=== PATIENT | male | born 1945 | race Caucasian/White ===

== ENCOUNTER 2018-04-04 17:46 | Emergency (ER) | payer MEDICARE, BC ==
[2018-04-04] MEDS ORDERED: HYDROcodone/Acetaminophen 5/325 mg Tablet ONE (18:17)
[2018-04-04] MEDS ORDERED: Ketorolac Tromethamine 30 MG/ML VIAL ONE (18:17)
--- NOTE | 2018-04-04 18:22 | RAD ---
LEFT SHOULDER THREE VIEWS: 04/04/18 HISTORY: Pain. COMPARISON: None. FINDINGS: There is a comminuted fracture left proximal humerus extending to the lesser and greater tuberosity o f the humeral neck. No fracture displaced greater than 1 cm and there is less than 45 degree angulati on. IMPRESSION: 1. Comminuted fracture left humeral neck. 2. Likely left sided rib fractures. 3. Likely left extrapleural hematoma. POS: [facility]
== END 2018-04-04 18:35 | disposition home or self-care (01) ==
LOC: SCSER 17:46
DX: S42.292A Other displaced fracture of upper end of left humerus, initial encounter for closed fracture (principal); E78.5 Hyperlipidemia, unspecified; Z87.891 Personal history of nicotine dependence; X58.XXXA Exposure to other specified factors, initial encounter
CPT/HCPCS: 93005; 96372; J1885

== ENCOUNTER 2019-05-31 06:04 | Outpatient (CLI) | payer MEDICARE, BC ==
[2019-05-31 13:17] LABS: Hemoglobin 13.2 g/dL (14.0-18.0); Mean Corpuscular HGB CONC 32.7 g/dL (32.0-36.0); Mean Corpuscular Hemoglobin 31.1 pg (27.0-31.0); Mean Corpuscular Volume 95.1 fL (78.0-98.0); Platelet Count 218 thou/uL (130-400); RBC Distribution Width 11.9 % (11.5-14.5); Red Blood Cell (RBC) Count 4.23 mill/uL (4.70-6.10); White Blood Cell (WBC) Count 6.5 thou/uL (4.8-10.8)
[2019-05-31 13:20] LABS: Bilirubin Negative (Negative); Blood, Urine 3+ (Negative); Clarity Turbid (Clear); Glucose, Urine (Dipstick) Normal (Negative); Leukocyte 25 Leu/uL (Negative); Nitrite Negative (Negative); Protein, Urine (Dipstick) 20 mg/dL (Neg-Trace); RBC/HPF Greater than 50 HPF (0-3); Squamous Epithelial None Seen HPF (0-3); Urobilinogen Normal mg/dL (Less than 2)
[2019-05-31 13:23] LABS: Bacteria/HPF 1+ HPF (None Seen)
[2019-05-31 13:25] LABS: INR-International Normal Ratio 1.7; Prothrombin Time 19.8 SEC (12.0-14.7)
[2019-05-31 13:51] LABS: Anion Gap 12 mmol/L (10-20); BUN (Urea Nitrogen) 28 mg/dL (8.4-25.7); Calc. Creatinine Clearance 0 mL/min (70-130); Calcium 9.7 mg/dL (7.8-10.44); Carbon Dioxide 27 mmol/L (23-31); Chloride 107 mmol/L (98-107); Estimated GFR-MDRD 56; Glucose 90 mg/dL (83-110); Potassium 4.7 mmol/L (3.5-5.1); Sodium 141 mmol/L (136-145)
--- NOTE | 2019-06-02 18:47 | EKG ---
Test Reason : Blood Pressure : / mmHG Vent. Rate : 050 BPM Atrial Rate : 050 BPM P-R Int : 208 ms QRS Dur : 126 ms QT Int : 480 ms P-R-T Axes : 012 066 098 degrees QTc Int : 437 ms Sinus bradycardia Non-specific intra-ventricular conduction block Cannot rule out Anteroseptal infarct (cited on or before 04-APR-2018) Abnormal ECG When compared with ECG of 04-APR-2018 18:16, Premature ventricular complexes are no longer Present Criteria for Inferior infarct are no longer Present Questionable change in initial forces of Anteroseptal leads Nonspecific T wave abnormality has replaced inverted T waves in Lateral leads Confirmed by DR. Marc WALKER ([id number]) on 06/02/2019 6:47:30 PM Referred By: JOSSE Confirmed By:DR. Marc WALKER
== END 2019-05-31 06:05 | disposition home or self-care (01) ==
LOC: LABBT 06:04
PROVIDERS: ATTEND Urology
DX: Z01.818 Encounter for other preprocedural examination (principal); N40.1 Benign prostatic hyperplasia with lower urinary tract symptoms
CPT/HCPCS: 80048; 81001; 85027; 85610; 85730; 87086; 93005; 93010

== ENCOUNTER 2019-06-08 09:30 | Inpatient (IN) | payer MEDICARE, BC ==
[2019-05-31 12:07] VITALS: BMI 25.8
[2019-06-08] MEDS ORDERED: Dexamethasone 20 MG/5 ML VIAL ONE (10:01)
[2019-06-08] MEDS ORDERED: Ondansetron PF 4 MG/2 ML Vial ONE (10:01)
[2019-06-08] MEDS ORDERED: Levofloxacin 500 mg/D5W 100 ml Premix Bag ONE (10:05)
[2019-06-08] MEDS ORDERED: Ketamine 50 MG/ML (10ML VIAL) ONE (11:27)
[2019-06-08] MEDS ORDERED: Midazolam HCl 2 mg/2 ml Vial ONE (11:27)
[2019-06-08] MEDS ORDERED: Ketorolac Tromethamine 30 MG/ML VIAL IVP SCH (12:00)
[2019-06-08] MEDS ORDERED: HYDROcodone/Acetaminophen 5/325 mg Tablet PO PRN (12:51)
[2019-06-08] MEDS ORDERED: Oxybutynin 5 MG TAB PO PRN (12:51)
[2019-06-08] MEDS ORDERED: diphenhydrAMINE 50 MG/ML VIAL IVP PRN (12:51)
[2019-06-08] MEDS ORDERED: PROVENTIL INHALER 6.7 G (200 INHALATIONS) INH PRN (12:51)
[2019-06-08] MEDS ORDERED: Morphine 4 MG/ML VIAL SLOW IVP PRN (12:51)
--- NOTE | 2019-06-08 14:09 | OP ---
DATE OF PROCEDURE: 06/08/2019 PREOPERATIVE DIAGNOSIS: Enlarged prostate with lower urinary tract symptoms. POSTOPERATIVE DIAGNOSIS: Enlarged prostate with lower urinary tract symptoms. PROCEDURE PERFORMED: Transurethral resection of prostate, bipolar. ANESTHESIA: General. COMPLICATIONS: None. SPECIMEN: Prostate chips. BLOOD LOSS: 30 mL. DESCRIPTION OF PROCEDURE: After informed consent, the patient was taken to the operating room, transferred to the table under his own power. Anesthesia was established. A time-out was performed, ensuring correct patient, site, and procedure. Preoperative antibiotics were administered. He was prepped and draped in the lithotomy position. The meatus was calibrated to 30-Croatian with Ernestina sounds. The rigid resectoscope was advanced through the urethra, noting a normal course and caliber in the urethra down to the prostatic urethra, noting coapting lateral lobes and a large median lobe. The bladder was entered, noting moderate trabeculation and no mucosal abnormalities. Both ureteral orifices were identified and were normal in appearance. I began by resecting the median lobe from the bladder neck back to the verumontanum. I then resected his left lobe from the 1 o'clock position down to the previously resected median lobe and then proceeded to repeat the same procedure on the patient's right side from 11 o'clock down. I then resected the anterior obstructing tissue. Meticulous hemostasis was achieved. All prostate chips were removed with the AnitaTDX evacuator. Upon completion, the irrigation was turned off, noting no active bleeding. Both ureteral orifices were uninvolved with resection. The scope was then removed and a 22-Cro[place]ian 3-way catheter was placed with 30 mL instilled in the balloon. Continuous irrigation was connected, which was running clear. The patient was then awoken from anesthesia, transferred back to his hospital bed, and taken to PACU in stable condition, where he will be admitted overnight for continuous irrigation. Job ID: [id number]
[2019-06-08] MEDS: Sodium Chloride 0.9% 1,000 ML IV SCH (16:00)
[2019-06-08] MEDS: Ketorolac Tromethamine 30 MG/ML VIAL IVP SCH (17:34)
[2019-06-08] MEDS: Docusate 100 MG CAP PO SCH (20:39)
[2019-06-08] MEDS: Rosuvastatin 20 MG TAB PO SCH (20:39)
[2019-06-08] MEDS ORDERED: Carvedilol 3.125 MG TAB PO SCH (21:00)
[2019-06-08] MEDS ORDERED: Furosemide 40 MG TAB PO SCH (21:00)
[2019-06-09] MEDS: Ketorolac Tromethamine 30 MG/ML VIAL IVP SCH ×5 (00:26→23:19)
[2019-06-09] MEDS: Sodium Chloride 0.9% 1,000 ML IV SCH (00:44)
--- NOTE | 2019-06-09 02:13 | PDOC.BPN ---
- Brief Progress Note Code Avery called for vasovagal episode while patient in restroom BP to 68/40, pulse 40 Moved patient to bed and bp recovered to 90s/50s, Pulse to mid 50s Patient states he never felt like he was about to pass out EKG shows sinus bradycardia no dropped beats Will transfer patient for cardiac monitoring Per discussion with Travel Clerk, tele will not be able to manage his CBI therefore will send patient to IMCU for management of CBI and monitoring.
[2019-06-09 04:20] LABS: #Lymphocytes 0.5 thou/uL (1.20-3.40); #Monocytes 0.6 thou/uL (0.11-0.59); #Neutrophils 13.5 thou/uL (1.40-6.50); %Eosinophils 0.1 % (0.0-10.0); %Lymphocytes 3.4 % (21.0-51.0); %Monocytes 4.2 % (0.0-10.0); %Neutrophils 92.3 % (42.0-75.0); Hemoglobin 10.4 g/dL (14.0-18.0); Mean Corpuscular HGB CONC 32.3 g/dL (32.0-36.0); Platelet Count 189 thou/uL (130-400); RBC Distribution Width 11.7 % (11.5-14.5); Red Blood Cell (RBC) Count 3.37 mill/uL (4.70-6.10); White Blood Cell (WBC) Count 14.6 thou/uL (4.8-10.8)
[2019-06-09] MEDS ORDERED: Sodium Chloride 0.9% 1,000 ML IV SCH (05:15)
[2019-06-09] MEDS ORDERED: Lactated Ringer's 1,000 ML IV SCH (06:00)
[2019-06-09] MEDS ORDERED: Spironolactone 25 MG TAB PO SCH (09:00)
[2019-06-09] MEDS: Carvedilol 3.125 MG TAB PO SCH ×2 (09:19→17:47)
[2019-06-09] MEDS: Aspirin 81 mg Enteric Coated Tablet PO SCH (09:23)
[2019-06-09] MEDS: Docusate 100 MG CAP PO SCH ×2 (09:23→20:37)
--- NOTE | 2019-06-09 09:31 | PRG ---
DATE OF SERVICE: 06/09/2019 SUBJECTIVE: The patient was transferred to step-down unit overnight due to hypotension. He was symptomatic briefly, reporting a moment of lightheadedness and a code green was called. During that code green, he required no treatment and reported that he felt fine. This morning, he reports no chest pains, lightheadedness, shortness of breath, or pain. OBJECTIVE: VITAL SIGNS: Afebrile, systolic blood pressure 85 to 90, heart rate low in the 70s. GENERAL: No acute distress. LUNGS: Unlabored breathing. ABDOMEN: Soft, nontender, and nondistended. : Maurer catheter in good position, draining light pink urine on a very slow drip CBI. ASSESSMENT AND PLAN: Postoperative day 1, bipolar transurethral resection of prostate. Holding most of his blood pressure medications and reducing his carvedilol. I do not think the patient requires a higher level of care for his continuous bladder irrigation as it can be run a very slow rate. It seems the nursing staff overnight was responding to the color of the urine in the drainage bag rather than the tubing and was running this wide open and became very frustrated by that. I will re-evaluate him at mid day, and if he is well enough to discharge home, we will do so. Otherwise, he will return to the floor and may stay one more night. Job ID: [id number]
--- NOTE | 2019-06-09 10:22 | PDOC.HOSPP ---
- Subjective Encounter Date: 06/09/19 Encounter Time: 10:20 Subjective: impatient with questioning-"its all in my records". I'm fine" - Objective Vital Signs & Weight: Vital Signs (12 hours) Temp Temp Pulse Pulse Pulse Pulse Pulse 06/09/19 08:00 98.1 F 06/09/19 03:30 06/09/19 03:25 98.5 F 06/09/19 01:45 98 F 50 L 48 L 48 L 49 L 06/08/19 23:15 97.5 F L 60 Pulse Pulse Resp Resp Resp Resp Resp 06/09/19 08:00 06/09/19 03:30 06/09/19 03:25 06/09/19 01:45 55 L 55 L 20 20 18 20 06/08/19 23:15 16 Resp Resp BP BP BP BP BP 06/09/19 08:00 06/09/19 03:30 06/09/19 03:25 06/09/19 01:45 20 20 52/36 L 63/36 L 64/39 L 82/49 L 96/53 L 06/08/19 23:15 BP BP Pulse Ox Pulse Ox Pulse Ox Pulse Ox Pulse Ox 06/09/19 08:00 98 06/09/19 03:30 98 06/09/19 03:25 06/09/19 01:45 102/76 96 96 95 100 06/08/19 23:15 88/56 L 98 Pulse Ox 06/09/19 08:00 06/09/19 03:30 06/09/19 03:25 06/09/19 01:45 100 06/08/19 23:15 Weight Weight 175 lb Most Recent Monitor Data Heart Rate from ECG 59 NIBP 93/50 NIBP BP-Mean 64 Respiration from ECG 21 SpO2 100 I&O: 06/08/19 06/09/19 06/10/19 06:59 06:59 06:59 Intake Total 2656 480 Output Total 3650 1600 Balance -994 1120 Result Diagrams: 06/09/19 04:11 Additional Labs: Accuchecks 06/09/19 01:56 POC Glucose 152 H Hospitalist ROS - Medication Medications: Active Medications Generic Name Dose Route Start Last Admin Trade Name Freq PRN Reason Stop Dose Admin Aspirin 81 mg 06/09/19 09:00 06/09/19 09:23 Ecotrin PO 81 mg DAILY CADEN Administration Carvedilol 3.125 mg 06/09/19 08:00 06/09/19 09:19 Coreg PO Not Given BID-WM CADEN Docusate Sodium 100 mg 06/08/19 21:00 06/09/19 09:23 Colace PO 100 mg BID CADEN Administration Ketorolac Tromethamine 15 mg 06/08/19 18:00 06/09/19 05:49 Toradol IVP 06/13/19 18:01 15 mg Q6HR CADEN Administration Oxybutynin Chloride 5 mg 06/08/19 12:51 06/09/19 00:26 Ditropan PO 5 mg Q8H PRN Administration Bladder Spasms Rosuvastatin Calcium 20 mg 06/08/19 21:00 06/08/19 20:39 Crestor PO 20 mg HS CADEN Administration - Exam General Appearance: awake alert Neck: no JVD Heart: RRR, III/IV Respiratory: CTAB Gastrointestinal: soft, normal bowel sounds Extremities: no edema Hosp A/P (1) Syncope and collapse Code(s): R55 - SYNCOPE AND COLLAPSE Status: Acute (2) CAD (coronary artery disease) Code(s): I25.10 - ATHSCL HEART DISEASE OF [place] CORONARY ARTERY W/O ANG PCTRS Status: Chronic Qualifiers: Coronary Disease-Associated Artery/Lesion type: unspecified vessel or lesion type Associated angina: without angina (3) Cardiomyopathy, ischemic Code(s): I25.5 - ISCHEMIC CARDIOMYOPATHY Status: Chronic (4) Mitral insufficiency Status: Chronic Qualifiers: Cardiac valve disease etiology: etiology unspecified Qualified Code(s): I34.0 - Nonrheumatic mitral (valve) insufficiency (5) Protein S deficiency Code(s): D68.59 - OTHER PRIMARY THROMBOPHILIA Status: Chronic (6) Chronic anticoagulation Code(s): Z79.01 - INTERMEDIATE (CURRENT) USE OF ANTICOAGULANTS Status: Chronic - Plan stable at present, Nl Bp is 95/55 range.
--- NOTE | 2019-06-09 12:16 | CON ---
DATE OF CONSULTATION: 06/09/2019 SERVICE: Pulmonary Medicine. REASON FOR CONSULTATION: ICU patient. HISTORY OF PRESENT ILLNESS: The patient is a 74-year-old white male with past medical history significant for symptomatic BPH. Postoperatively, he had hypotension. Apparently, he was briefly lightheaded. A Code Green was called and he was brought to the ICU. This morning, he is awake, alert, and cooperative. He has no lightheadedness, fevers, chills, cough, sputum production, nausea, or vomiting. His last bowel movement was yesterday morning. His is touch frustrated because she says that his baseline blood pressure is typically 90/40. The patient confirms this. There were no significant overnight events otherwise. He has known heart failure. He has good medications at this point. PAST MEDICAL HISTORY: 1. Hypertension. 2. Dyslipidemia. 3. Coronary artery disease with history of PCI. 4. Chronic systolic heart failure. 5. DVT. 6. Macular degeneration. 7. BPH. PAST SURGICAL HISTORY: 1. Coronary artery bypass graft. 2. Cataract surgery. 3. Cochlear implant. 4. Transurethral resection of the prostate. 5. History of PCI (percutaneous coronary intervention). 6. Lower extremity vein stripping. 7. Left thoracotomy. SOCIAL HISTORY: He drinks moderate amount of alcohol. He has a history of smoking. Denies any illicit drugs. He has no exposure to chemicals, dust, asbestos, or tuberculosis. FAMILY HISTORY: Noncontributory. ALLERGIES: NO KNOWN DRUG ALLERGIES. MEDICATIONS: List of his inpatient medications was reviewed. No specific updates were made at this time. REVIEW OF SYSTEMS: General; head, ears, eyes, nose, throat; cardiovascular; respiratory; GI; ; musculoskeletal; neurologic; and skin are negative except as mentioned in the HPI. PHYSICAL EXAMINATION: VITAL SIGNS: Afebrile, pulse 59, blood pressure 93/50, respirations 21, and saturation 100% on room air. GENERAL: The patient is awake and alert, in no apparent distress. LUNGS: Very good air entry with no prolonged expiratory phase. I do not hear any crackles or wheezing. HEART: Normal rate and regular. ABDOMEN: Soft, nontender, and nondistended. Bowel sounds are positive. MUSCULOSKELETAL: No cyanosis or clubbing. No pitting in the bilateral lower extremities. NEUROLOGIC: Grossly nonfocal. LABORATORY DATA: WBC 14.6, hemoglobin 10.4, and platelets 189,000. Glucose 152. Creatinine 1.25 preop. Urinalysis is unremarkable. ASSESSMENT: 1. BPH, status post transurethral resection of the prostate, postop day #1. 2. Chronic systolic heart failure. 3. Low blood pressure, at baseline. DISCUSSION AND PLAN: We will move the patient through the day. If he tolerates getting into a chair and moving with physical therapy, he can be transitioned to the floor. I will continue to follow for the time being. I agree that he is likely stable for discharge home if he meets criteria from a surgical perspective. If he remains in-house in the ICU, I will follow. 70 minutes have been devoted to this patient in various activities. I personally reviewed all imaging studies and laboratory data noted within this document. For fifty percent of this time, I was interacting with the patient at the bedside or coordinating care with the care team. For the remainder of the time I was immediately available to the patient in the hospital unit. Job ID: [id number] MTDD
--- NOTE | 2019-06-09 12:17 | CON ---
DATE OF CONSULTATION: REQUESTING PHYSICIAN: Urology, Wade Barrera MD REASON FOR CONSULTATION: Hypertension. HISTORY OF PRESENT ILLNESS: Mr. Thee Dean is a 74-year-old with history of hypertension; CAD, status post CABG in 2009; with no recurrent coronary syndrome since then, hyperlipidemia, cochlear implant, protein S deficiency, on anticoagulation with Xarelto, who presented for TURP procedure yesterday and he was placed on bladder irrigation. The patient developed transient vasovagal symptoms while in the bathroom early hours of this morning. His blood pressure was noted to have systolic in the 80s. The patient was transferred to the ICU. Hospitalist Service was consulted for management of blood pressure. He has earlier been given his Coreg post surgery. The patient denies any chest pain. Denies any dizziness. We proceeded by giving him 1 L of normal saline. The patient's blood pressure improved to 110 now. He denies any syncope at this time. PAST MEDICAL HISTORY: Significant for hypertension, hyperlipidemia, coronary artery disease, status post CABG. PAST SURGICAL HISTORY: Cochlear implant, CABG, and transurethral resection of prostate yesterday. ALLERGIES: NO KNOWN DRUG ALLERGIES. HOME MEDICATIONS: See MAR and include Coreg 3.125 b.i.d. FAMILY HISTORY: Noncontributory. REVIEW OF SYSTEMS: All systems review x14 were negative. PHYSICAL EXAMINATION: CURRENT VITAL SIGNS: Blood pressure of 110/73, pulse of 89, respiratory rate of 18, O2 saturation is 97% on room air. GENERAL: Elderly male, not in any distress. HEENT: Pupils are equal and reactive to light. Extraocular movements are intact. NECK: No JVD. No carotid bruits. RESPIRATORY: Good air entry bilaterally. No crepitations. CARDIOVASCULAR: S1 and S2. Rate and rhythm regular. GI: Abdomen is full, soft, nontender. Bowel sounds positive. EXTREMITIES: No pedal edema. No calf tenderness. GENITOURINARY: Maurer catheter irrigation, triple-lumen Maurer catheter with . LABORATORY DATA: Hemoglobin this morning 10.4, WBC of 14. Glucose 152. IMPRESSION: Transient vasovagal symptoms with hypotension, likely due to Coreg use, with recent postoperative status, symptoms improved with IV fluids. Continue gentle IV fluids for now. There is no history of congestive heart failure. The patient tolerate NS at 100 mL/hour. PLAN: 1. We will hold off Coreg for now since previous transient bradycardia and vasovagal symptoms. Hold Lasix diuretic for now also. 2. Status post TURP -Continue bladder irrigation. Follow Urology. Monitor H and H. If decrease in H and H, the patient might need PRBC. 3. DVT prophylaxis. We will defer to Urology Team. Total time spent on review of record, discussion with the patient, and evaluation greater than 55 minutes. Job ID: [id number]
[2019-06-09] MEDS: Rosuvastatin 20 MG TAB PO SCH (20:37)
[2019-06-10] MEDS: Ketorolac Tromethamine 30 MG/ML VIAL IVP SCH (05:35)
[2019-06-10] MEDS: Carvedilol 3.125 MG TAB PO SCH (07:45)
[2019-06-10] MEDS: Docusate 100 MG CAP PO SCH (08:46)
[2019-06-10] MEDS: Aspirin 81 mg Enteric Coated Tablet PO SCH (08:46)
[2019-06-10 11:31] VITALS: BP 97/58; TEMP 98.2
--- NOTE | 2019-06-11 14:30 | DIS ---
DATE OF ADMISSION: 06/09/2019 DATE OF DISCHARGE: 06/10/2019 DIAGNOSIS: Enlarged prostate with lower urinary tract symptoms. PROCEDURE PERFORMED: Bipolar transurethral resection of prostate. HOSPITAL COURSE: The patient underwent an uncomplicated bipolar transurethral resection of prostate. He was managed with continuous irrigation overnight. He became lightheaded briefly and a code green was called overnight. He was transferred to the cardiac unit. However, in speaking with him reported that overall he felt fine and was not having any chest pains. His vitals remained stable and urine remained light pink on a slow drip. I elected to observe him another night and the following morning, on postop day 2, he was having no new symptoms, vitals remained stable, the urine was light pink, off CBI. He was deemed stable for discharge home at that point. Postoperative medications; continue home medications, we will hold Xarelto until his postoperative check, Bactrim, ibuprofen, oxybutynin, and docusate prescribed postoperatively. PLAN: Follow up next week for void trial. Job ID: [id number]
--- NOTE | 2019-06-13 13:30 | EKG ---
Test Reason : STAT Blood Pressure : / mmHG Vent. Rate : 052 BPM Atrial Rate : 052 BPM P-R Int : 188 ms QRS Dur : 124 ms QT Int : 476 ms P-R-T Axes : 021 016 135 degrees QTc Int : 442 ms Sinus bradycardia Possible Inferior infarct , age undetermined Abnormal ECG When compared with ECG of 31-DEC-1996 12:58, QRS duration has increased Borderline criteria for Inferior infarct are now Present T wave inversion now evident in Lateral leads Confirmed by TUAN RAJPUT (2) on 06/13/2019 1:30:00 PM Referred By: AIYANA Confirmed By:TUAN RAJPUT
== END 2019-06-10 11:44 | disposition home or self-care (01) | DRG 713 ==
LOC: SDC 09:30 → SURG A 11:29 → CCU 06-09 02:34 → OBSVTOIN 06-09 14:33 → SJJU 06-09 17:12
PROVIDERS: ADMIT Urology; ATTEND Urology
PROC: 0VB08ZZ Excision of Prostate, Via Natural or Artificial Opening Endoscopic (ICD-10-PCS; principal; 2019-06-08)
DX: N40.1 Benign prostatic hyperplasia with lower urinary tract symptoms (principal); D68.59 Other primary thrombophilia; I50.22 Chronic systolic (congestive) heart failure; R55 Syncope and collapse; I25.10 Atherosclerotic heart disease of native coronary artery without angina pectoris; I25.5 Ischemic cardiomyopathy; I34.0 Nonrheumatic mitral (valve) insufficiency; E78.5 Hyperlipidemia, unspecified; I11.0 Hypertensive heart disease with heart failure; I95.2 Hypotension due to drugs; T44.7X5A Adverse effect of beta-adrenoreceptor antagonists, initial encounter; Z87.891 Personal history of nicotine dependence
CPT/HCPCS: 36415; 36416; 85025; 88305; 93005; 93010; J1100; J1885; J1956; J2250; J2405

== ENCOUNTER 2021-08-23 11:47 | Outpatient (CLI) | payer MEDICARE, BC ==
[2021-08-23 23:06] LABS: SARS-CoV-2 PCR by NAA Not Detected (NotDetected)
== END 2021-08-23 11:48 | disposition home or self-care (01) ==
LOC: LABBT 11:47
PROVIDERS: ATTEND Ophthalmology Retina Specialist
DX: Z01.812 Encounter for preprocedural laboratory examination (principal); H35.371 Puckering of macula, right eye; H54.7 Unspecified visual loss; Z20.822 Contact with and (suspected) exposure to COVID-19
CPT/HCPCS: U0003; U0005

== ENCOUNTER 2021-08-28 06:42 | Day surgery (SDC) | payer MEDICARE, BC ==
[2021-08-27 13:11] VITALS: BMI 25.1
[~2021-08-28 06:42] MED LIST: EPINEPHrine 0.3 MG in Ophthalmic Irrigation Solution 500 ML IRR SCH
[2021-08-28] MEDS ORDERED: Cyclopentolate 1% Opth Drop 2 ML BOT ONE (06:57)
[2021-08-28] MEDS ORDERED: Phenylephrine 2.5% Ophth Soln 5 ML BOT ONE (06:58)
[2021-08-28] MEDS ORDERED: Midazolam HCl 2 mg/2 ml Vial ONE (07:31)
[2021-08-28] MEDS ORDERED: Fentanyl 100 MCG/2 ML VIAL ONE (07:31)
[2021-08-28] MEDS ORDERED: Lidocaine 1% PF 5 ML VIAL ONE (08:26)
[2021-08-28] MEDS ORDERED: Indocyanine Green 25 MG/10 ML VIAL ONE (08:26)
[2021-08-28] MEDS ORDERED: Triamcinolone 40 MG/ML VIAL ONE (08:26)
[2021-08-28] MEDS ORDERED: PROPOFOL 200 MG/20 ML VIAL ONE (08:26)
[2021-08-28] MEDS ORDERED: Maxitrol 0.1% Opth Oint 3.5 GM TUBE ONE (08:26)
[2021-08-28] MEDS ORDERED: Bupivacaine PF 0.75% SDV 10 ML ONE (08:26)
[2021-08-28] MEDS ORDERED: CEFAZOLIN 1 GM VIAL ONE (08:26)
[2021-08-28] MEDS ORDERED: Lidocaine 4% PF 5 ML AMP ONE (08:26)
== END 2021-08-28 10:47 | disposition home or self-care (01) ==
LOC: SDC 06:42
PROVIDERS: ATTEND Ophthalmology Retina Specialist
PROC: 08T43ZZ Resection of Right Vitreous, Percutaneous Approach (ICD-10-PCS; principal; 2021-08-28)
PROC: 08NE3ZZ Release Right Retina, Percutaneous Approach (ICD-10-PCS; 2021-08-28)
DX: H35.371 Puckering of macula, right eye (principal); Z79.01 Long term (current) use of anticoagulants; Z79.82 Long term (current) use of aspirin; Z79.899 Other long term (current) drug therapy; Z91.040 Latex allergy status; Z95.1 Presence of aortocoronary bypass graft; Z95.810 Presence of automatic (implantable) cardiac defibrillator
CPT/HCPCS: J0171; J0690; J2250; J2704; J3010; J3301; J3490